=== PATIENT | male | born 1990 | race Caucasian/White ===

== ENCOUNTER 2025-01-05 21:57 | Emergency (ER) | payer BC ==
[2025-01-06] MEDS ORDERED: MORPHINE 4 MG/ML SYR ONE (00:21)
[2025-01-06] MEDS ORDERED: KETOROLAC 30 MG/ML INJ ONE (00:21)
[2025-01-06] MEDS ORDERED: ONDANSETRON 4 MG/2 ML VIAL ONE (00:21)
[2025-01-06] MEDS ORDERED: METHOCARBAMOL 1,000 MG/10 ML VIAL ONE (00:21)
[2025-01-06] MEDS ORDERED: NA CHLORIDE 0.9% 1,000 ML ONE (00:22)
[2025-01-06] MEDS ORDERED: NA CHLORIDE 0.9% 100 ML ONE (00:22)
[2025-01-06 01:34] LABS: Urine Microscopic Reflex YN NO UMIC
[2025-01-06 01:36] LABS: Absolute Lymphocytes (CBC) 2.8 K/uL (0.7-4.9); Hematocrit 41.0 % (39.6-49.0); Hemoglobin 14.1 g/dL (13.6-17.9); MCH 31.4 pg (27.0-35.0); MCHC 34.3 g/dL (32.0-36.0); MCV 91.6 fL (80-100); MPV 8.9 fL (7.6-11.3); Nucleated RBC Absolute Count 0.0 (0-0); Nucleated Red Blood Cells % 0.0 % (0-0); RBC Red Blood Cell Count 4.47 M/uL (4.33-5.43); White Blood Count 8.90 thou/uL (4.3-10.9)
[2025-01-06 01:55] LABS: ALT/SGPT 25.0 U/L (16-61); Albumin 3.5 g/dL (3.4-5.0); Albumin/Globulin Ratio 1.2 (1.1-1.8); Alkaline Phosphatase 72.0 U/L (45-117); Anion Gap 7.0 mEq/L (5.0-15.0); BUN Blood Urea Nitrogen 10.0 mg/dL (7-18); Globulin 3.0 g/dL (2.3-3.5); Glucose Level 98.0 mg/dL (74-106); Lipase 42.0 U/L (13-75)
[2025-01-06 01:56] LABS: AST/SGOT 18.0 U/L (15-37); Potassium 4.0 mEq/L (3.5-5.1)
--- NOTE | 2025-01-06 03:08 | EDPHYS ---
Physician Documentation [facility] Name: Yomi Martinez Age: 34 yrs Sex: Male : 1990 Arrival Date: 01/05/2025 Time: 21:57 Bed 8 Private MD: ED Physician Mich Babrosa HPI: 01/05 22:09 This 34 yrs old Other Race Male presents to ER via Ambulatory with complaints of Low sp4 Back Pain. 01/07 02:02 Patient presents with worsening moderate to severe upper to mid back pain. History of sp4 moderate arthritis possible rheumatoid arthritis. History of chronic pain history of pain management. At this time patient denied any other symptoms.. Historical: - Allergies: 01/05 22:09 No Known Allergies; me1 - PMHx: 22:09 bulging disc; Hernia; me1 - PSHx: 22:09 Hernia repair x2; me1 - Immunization history:: Adult Immunizations up to date. - Infectious Disease History:: Denies. - Social history:: Smoking status: Patient reports use of chewing tobacco. - Family history:: not pertinent. ROS: 01/07 02:02 Constitutional: Negative for fever, chills, and weight loss, positive upper to mid back sp4 pain All other systems are negative, Exam: 02:02 Constitutional: This is a well developed, well nourished patient who is awake, alert, sp4 and in no acute distress. Head/Face: Normocephalic, atraumatic. Eyes: Pupils equal round and reactive to light, extra-ocular motions intact. Lids and lashes normal. Conjunctiva and sclera are not injected. Cornea within normal limits. Periorbital areas with no swelling, redness, or edema. ENT: Nares patent. No nasal discharge, no septal abnormalities noted. Tympanic membranes are normal and external auditory canals are clear. Oropharynx with no redness, swelling, or masses, exudates, or evidence of obstruction, uvula midline. Mucous membranes moist. Neck: Trachea midline, no thyromegaly or masses palpated, and no cervical lymphadenopathy. Supple, full range of motion without nuchal rigidity, or vertebral point tenderness. Chest/axilla: Normal chest wall appearance and motion. Nontender with no deformity. No lesions are appreciated. Cardiovascular: Regular rate and rhythm with a normal S1 and S2. No gallops, murmurs, or rubs. No pulse deficits. Respiratory: Lungs have equal breath sounds bilaterally, clear to auscultation and percussion. No rales, rhonchi or wheezes noted. No increased work of breathing, no retractions or nasal flaring. Abdomen/GI: Soft, with normal bowel sounds. No distension or tympany. No guarding or rebound. No evidence of tenderness throughout. Back: No spinal tenderness. No costovertebral tenderness. Skin: Warm, dry with normal turgor. Normal color with no rashes, no lesions, and no evidence of cellulitis. MS/ Extremity: Pulses equal, no cyanosis. Neurovascular intact. Full, normal range of motion. Neuro: Awake and alert, GCS 15, oriented to person, place, time, and situation. Cranial nerves II-XII grossly intact. Motor strength 5/5 in all extremities. Sensory grossly intact. Psych: Awake, alert, with orientation to person, place and time. Behavior, mood, and affect are within normal limits Vital Signs: 01/05 22:07 BP 130 / 86; Pulse 87; Resp 17; Temp 98.2; Pulse Ox 99% ; Weight 78.47 kg; Height 5 ft. me1 8 in. ; Pain 8/10; 01/06 01:26 BP 123 / 80; Pulse 86; Resp 18; Pulse Ox 98% on R/A; Pain 8/10; tb4 02:30 BP 127 / 67; Pulse 73; Resp 19; Pulse Ox 100% on R/A; tb4 03:20 BP 120 / 75; Pulse 81; Resp 17; Pulse Ox 98% on R/A; tb4 01/05 22:07 Body Mass Index 26.30 (78.47 kg, 172.72 cm) me1 01/05 22:07 Pain Scale: Adult me1 01/06 01:26 Pain Scale: Adult tb4 Lillie Coma Score: 01/07 02:02 Eye Response: spontaneous(4). Motor Response: obeys commands(6). Verbal Response: sp4 oriented(5). Total: 15. MDM: 01/05 22:11 Medical Screening Exam initiated sp4 01/06 02:56 ED course: INDICATION: back pain COMPARISON: No existing relevant imaging studies are sp4 available TECHNIQUE: Enhanced CT of the abdomen and pelvis performed per protocol. Oral contrast was not administered. Multiplanar reconstructions were provided. Dose reduction techniques were utilized for this exam including automated exposure control, adjustments to mA and/or kV according to patient's size, and the use of iterative reconstruction techniques. FINDINGS: LOWER CHEST: Bibasilar subsegmental atelectasis. LIVER: Unremarkable. SPLEEN: Unremarkable. PANCREAS: Unremarkable. ADRENALS: Unremarkable. KIDNEYS: Unremarkable. GALLBLADDER: Unremarkable. VESSELS: Aortoiliac system normal in course and caliber. BOWEL: Relatively diffusely fluid-filled small bowel, some loops of which are borderline thickened. No bowel obstruction. APPENDIX: Normal. FLUID: No free fluid or abnormal fluid collection. ADENOPATHY: No pathologic adenopathy. BLADDER: Distended. PELVIS: Prostate is normal. BONES: No acute bony abnormality. Disc bulge at L5-S1. SOFT TISSUES: Unremarkable. IMPRESSION: 1. Equivocal findings for small bowel enteritis. 2. Distended urinary bladder. Electronically signed by: Jimmy Trujillo DO 01/06/2025 02:33 AM. 01/07 02:03 Differential diagnosis: arthritis, strain, fracture, sciatica, contusion, Herniated sp4 disc UTI. Data reviewed: vital signs, nurses notes, lab test result(s), radiologic studies, CT scan. Consideration of Admission/Observation Escalation of care including admission/observation considered. ED course: Stable for discharge home with recommendation to see a local neurosurgery. 01/05 22:30 Order name: CBC with Diff; Complete Time: 01:59 sp4 01/05 22:30 Order name: CMP; Complete Time: 01:59 sp4 01/05 22:30 Order name: Lipase; Complete Time: 01:59 sp4 01/05 22:30 Order name: CK; Complete Time: 01:59 sp4 01/05 22:30 Order name: UA Rfx Jared Cult if indicated; Complete Time: 01:59 sp4 01/05 22:30 Order name: CT Abd/Pelvis - IV Contrast Only sp4 01/05 22:30 Order name: IV Saline Lock; Complete Time: 01:17 sp4 01/05 22:30 Order name: Labs collected and sent; Complete Time: 01:26 sp4 Administered Medications: 01/06 01:17 Drug: Ketorolac IVP 30 mg IVP once Route: IVP; Site: left antecubital; tb4 03:18 Follow up: Response: No adverse reaction; Pain is decreased tb4 01:17 Drug: Methocarbamol IVPB 1 grams IVPB once over 1 hrs; (mix in NS 100 mL) Route: IVPB; tb4 Infused Over: 1 hrs; Site: left antecubital; 03:18 Follow up: Response: No adverse reaction; IV Status: Completed infusion tb4 01:17 Drug: NS 0.9% IV 1000 ml IV at 1 bolus Per protocol; to be given as a bolus over 60 tb4 minutes Route: IV; Rate: 1 bolus; Site: left antecubital; 03:17 Follow up: Response: No adverse reaction; IV Status: Completed infusion tb4 01:18 Drug: morphine IVP or IV 4 mg IVP once over 4 mins Route: IVP; Infused Over: 4 mins; tb4 Site: left antecubital; 03:19 Follow up: Response: No adverse reaction; Pain is decreased; RASS: Alert and Calm (0) tb4 01:18 Drug: Ondansetron IVP 4 mg IVP once; over 2 minutes Route: IVP; Site: left antecubital; tb4 03:19 Follow up: Response: No adverse reaction; Nausea is decreased tb4 01:21 Drug: Droperidol IVP 5 mg IVP once Route: IVP; Site: left antecubital; tb4 03:19 Follow up: Response: No adverse reaction tb4 Disposition: 01/07 02:03 Chart complete. sp4 Disposition Summary: 01/06/25 03:07 Discharge Ordered Notes: Location: Home sp4 Problem: new sp4 Symptoms: have improved sp4 Condition: Stable sp4 Diagnosis - Other viral enteritis sp4 - Acute upper back pain, thoracic to lumbar back pain, L5-S1 discogenic pain sp4 Followup: sp4 - With: Private Physician - When: 7 - 10 days - Reason: Recheck today's complaints Followup: sp4 - With: Jatinder Barriga MD - When: 7 - 10 days - Reason: Recheck today's complaints Discharge Instructions: - Discharge Summary Sheet sp4 - Viral Gastroenteritis, Adult, [id number] sp4 Forms: - Patient Portal Instructions sp4 Prescriptions: - meloxicam 15 mg Oral tablet - take 1 tablet ORAL route daily; 30 tablet; Refills: 0, Product Selection sp4 Permitted - Zofran 4 mg Oral tablet - take 1 tablet ORAL route every 8 hours As needed; 30 tablet; Refills: 0, sp4 Product Selection Permitted - Cyclobenzaprine 10 mg Oral Tablet - take 1 tablet ORAL route every 8 hours As needed; 30 tablet; Refills: 0, sp4 Product Selection Permitted - Tramadol 50 mg Oral tablet - take 1 tablet ORAL route every 8 hours as needed; 25 tablet; Refills: 0, sp4 Product Selection Permitted - dicyclomine 20 mg Oral tablet - take 2 tablets ORAL route 3 times per day PRN abdominal pain; 30 tablet; sp4 Refills: 0, Product Selection Permitted Signatures: Dispatcher [employer] EDMS Mich Barbosa MD MD sp4 Zayda Reynolds, RN RN me1 Carlita Palmer RN RN tb4 Corrections: (The following items were deleted from the chart) 01/05 22:31 22:31 CREATINE PHOSPHOKINASE+C.LAB.BRZ ordered. EDMS EDMS 22:31 22:31 UA Rfx Jared Cult if indicated+U.LAB.BRZ ordered. EDMS EDMS
--- NOTE | 2025-01-06 03:08 | ER ---
Nurse's Notes [facility] Name: Yomi Martinez Age: 34 yrs Sex: Male : 1990 Arrival Date: 01/05/2025 Time: 21:57 Bed 8 Private MD: Diagnosis: Other viral enteritis;Acute upper back pain, thoracic to lumbar back pain, L5-S1 discogenic pain Presentation: 01/05 22:07 Chief complaint: Patient states: intermittent bilateral flank pain for about a month, me1 pain is sharp "8/10". Nausea at times. Denies burning with urination, no urinary frequency. Coronavirus screen: Vaccine status: Patient reports being unvaccinated. Ebola Screen: No symptoms or risks identified at this time. Initial Sepsis Screen: Does the patient meet any 2 criteria? No. Patient's initial sepsis screen is negative. Does the patient have a suspected source of infection? No. Patient's initial sepsis screen is negative. Risk Assessment: Do you want to hurt yourself or someone else? Patient reports no desire to harm self or others. Onset of symptoms is unknown. 22:07 Method Of Arrival: Ambulatory me1 22:07 Acuity: IVETTE 3 me1 Historical: - Allergies: 22:09 No Known Allergies; me1 - PMHx: 22:09 bulging disc; Hernia; me1 - PSHx: 22:09 Hernia repair x2; me1 - Immunization history:: Adult Immunizations up to date. - Infectious Disease History:: Denies. - Social history:: Smoking status: Patient reports use of chewing tobacco. - Family history:: not pertinent. Screenin/05 01:49 [facility] ED Fall Risk Assessment (Adult) History of falling in the last 3 months, tb4 including since admission No falls in past 3 months (0 pts) Confusion or Disorientation No (0 pts) Intoxicated or Sedated No (0 pts) Impaired Gait No (0 pts) Mobility Assist Device Used No (0 pt) Altered Elimination No (0 pt) Score/Fall Risk Level 0 - 2 = Low Risk Maintained a safe environment. Abuse screen: Denies threats or abuse. Denies injuries from another. Nutritional screening: No deficits noted. Tuberculosis screening: No symptoms or risk factors identified. Assessment: 01:49 General: Appears in no apparent distress. Behavior is calm, cooperative. Pain: tb4 Complains of pain in lumbar area, left low back, left mid back, right mid back and right low back and generalized back body pain Pain does not radiate. Pain currently is 8 out of 10 on a pain scale. Quality of pain is described as sharp, shooting, Pain began gradually. Neuro: Level of Consciousness is awake, alert, obeys commands, Oriented to person, place, time, situation, Fire Alarm Technician are equal bilaterally Moves all extremities. Full function Gait is steady, Speech is normal, Facial symmetry appears normal. Respiratory: Airway is patent Respiratory effort is even, unlabored, Respiratory pattern is regular, symmetrical. GI: No deficits noted. No signs and/or symptoms were reported involving the gastrointestinal system. : No deficits noted. No signs and/or symptoms were reported regarding the genitourinary system. EENT: No deficits noted. No signs and/or symptoms were reported regarding the EENT system. Derm: No deficits noted. No signs and/or symptoms reported regarding the dermatologic system. Skin is intact, is healthy with good turgor, Skin is dry, Skin is normal, Skin temperature is warm. Musculoskeletal: Reports pain in generalized pain but mostly lower back pain. 03:21 Reassessment: Patient is alert, oriented x 3, equal unlabored respirations, skin tb4 warm/dry/pink. Patient states feeling better. Patient states symptoms have improved. Vital Signs: 01/05 22:07 BP 130 / 86; Pulse 87; Resp 17; Temp 98.2; Pulse Ox 99% ; Weight 78.47 kg; Height 5 ft. me1 8 in. ; Pain 8/10; 01/06 01:26 BP 123 / 80; Pulse 86; Resp 18; Pulse Ox 98% on R/A; Pain 8/10; tb4 02:30 BP 127 / 67; Pulse 73; Resp 19; Pulse Ox 100% on R/A; tb4 03:20 BP 120 / 75; Pulse 81; Resp 17; Pulse Ox 98% on R/A; tb4 01/05 22:07 Body Mass Index 26.30 (78.47 kg, 172.72 cm) me1 01/05 22:07 Pain Scale: Adult me1 01/06 01:26 Pain Scale: Adult tb4 Lillie Coma Score: 01/07 02:02 Eye Response: spontaneous(4). Motor Response: obeys commands(6). Verbal Response: sp4 oriented(5). Total: 15. ED Course: 01/05 21:59 Patient arrived in ED. im 22:09 Triage completed. me1 22:09 Mich Barbosa MD is Attending Physician. sp4 22:09 Arm band placed on Patient placed in waiting room. me1 01/06 01:17 Inserted saline lock: 20 gauge in left antecubital area, using aseptic technique. Blood tb4 collected. Flushed with 10 mL NS. 01:49 Patient has correct armband on for positive identification. Bed in low position. Call tb4 light in reach. Side rails up X 1. Client placed on continuous cardiac and pulse oximetry monitoring. NIBP monitoring applied. Pulse ox on. Door closed. Warm blanket given. 01:49 No provider procedures requiring assistance completed. Initial lab(s) drawn, by hi, tb4 sent to lab. Urine collected: clean catch specimen, clear, CT Scan. 02:12 CT Abd/Pelvis - IV Contrast Only In Process Unspecified. EDMS 03:06 Jatinder Barriga MD is Referral Physician. sp4 03:21 Provided Education on: Take medication as prescribed. tb4 03:33 IV discontinued, intact, bleeding controlled, No redness/swelling at site. Pressure tb4 dressing applied. Administered Medications: 01:17 Drug: Ketorolac IVP 30 mg IVP once Route: IVP; Site: left antecubital; tb4 03:18 Follow up: Response: No adverse reaction; Pain is decreased tb4 01:17 Drug: Methocarbamol IVPB 1 grams IVPB once over 1 hrs; (mix in NS 100 mL) Route: IVPB; tb4 Infused Over: 1 hrs; Site: left antecubital; 03:18 Follow up: Response: No adverse reaction; IV Status: Completed infusion tb4 01:17 Drug: NS 0.9% IV 1000 ml IV at 1 bolus Per protocol; to be given as a bolus over 60 tb4 minutes Route: IV; Rate: 1 bolus; Site: left antecubital; 03:17 Follow up: Response: No adverse reaction; IV Status: Completed infusion tb4 01:18 Drug: morphine IVP or IV 4 mg IVP once over 4 mins Route: IVP; Infused Over: 4 mins; tb4 Site: left antecubital; 03:19 Follow up: Response: No adverse reaction; Pain is decreased; RASS: Alert and Calm (0) tb4 01:18 Drug: Ondansetron IVP 4 mg IVP once; over 2 minutes Route: IVP; Site: left antecubital; tb4 03:19 Follow up: Response: No adverse reaction; Nausea is decreased tb4 01:21 Drug: Droperidol IVP 5 mg IVP once Route: IVP; Site: left antecubital; tb4 03:19 Follow up: Response: No adverse reaction tb4 Medication: 01:49 VIS not applicable for this client. tb4 Outcome: 03:07 Discharge ordered by . sp4 03:32 Discharged to home ambulatory, with family, tb4 03:32 Condition: stable 03:32 Discharge instructions given to patient, family, Instructed on discharge instructions, follow up and referral plans. Demonstrated understanding of instructions, follow-up care, medications, Prescriptions given X 4, 03:33 Patient left the ED. tb4 Signatures: Dispatcher [employer] Mich Galdamez MD MD sp4 Charissa Warren Michelle RN RN me1 Carlita Palmer RN RN tb4
[2025-01-06 03:48] VITALS: TEMP 98.2
[2025-01-06 03:53] VITALS: BP 120/75; O2SAT 98
--- NOTE | 2025-01-06 05:28 | RAD REPORT ---
INDICATION: back pain COMPARISON: No existing relevant imaging studies are available TECHNIQUE: Enhanced CT of the abdomen and pelvis performed per protocol. Oral contrast was not administered. Mul tiplanar reconstructions were provided. Dose reduction techniques were utilized for this exam including automated exposure control, adjustmen ts to mA and/or kV according to patient's size, and the use of iterative reconstruction techniques. FINDINGS: LOWER CHEST: Bibasilar subsegmental atelectasis. LIVER: Unremarkable. SPLEEN: Unremarkable. PANCREAS: Unremarkable. ADRENALS: Unremarkable. KIDNEYS: Unremarkable. GALLBLADDER: Unremarkable. VESSELS: Aortoiliac system normal in course and caliber. BOWEL: Relatively diffusely fluid-filled small bowel, some loops of which are borderline thickened. N o bowel obstruction. APPENDIX: Normal. FLUID: No free fluid or abnormal fluid collection. ADENOPATHY: No pathologic adenopathy. BLADDER: Distended. PELVIS: Prostate is normal. BONES: No acute bony abnormality. Disc bulge at L5-S1. SOFT TISSUES: Unremarkable. IMPRESSION: 1. Equivocal findings for small bowel enteritis. 2. Distended urinary bladder. Electronically signed by: Jimmy Trujillo DO 01/06/2025 02:33 AM CDT NR Due to temporary technical issues with the PACS/[employer]obe[employer] reporting system, reports are being jenelle d by the in-house radiologist without review as a courtesy to ensure prompt reporting the interpreting radiologist is fully responsible for the content of the report. Transcribed Date/Time: 01/06/2025 5:28 AM
== END 2025-01-06 03:33 | disposition home or self-care (01) ==
LOC: ER 21:57
DX: M54.50 Low back pain, unspecified (principal); A08.39 Other viral enteritis; F17.220 Nicotine dependence, chewing tobacco, uncomplicated
CPT/HCPCS: 96365; 85025; 36415; 82550; 81003; 83690; 80053; 74177; 96375; 99284; 96366; Q9967; J1885; J2405; J2800; J1790; J7030